=== PATIENT | female | born 1995 | race African-American/Black ===

== ENCOUNTER 2017-05-10 18:22 | Emergency (ER) | payer OTHER ==
[~2017-05-10] VITALS: Ht 157.5 cm; Wt 39.9 kg
[2017-05-10] MEDS ORDERED: ROBAXIN500 MG PO (18:47)
[2017-05-10] MEDS ORDERED: MOTRIN600 MG PO (18:47)
[2017-05-10 18:55] VITALS: BP 151/96
== END 2017-05-10 18:55 | disposition home or self-care (01) ==
LOC: EME 18:22
DX: R51 Headache (principal); R10.9 Unspecified abdominal pain; M54.9 Dorsalgia, unspecified; V49.40XA Driver injured in collision with unspecified motor vehicles in traffic accident, initial encounter
CPT/HCPCS: 99281; 99283